=== PATIENT | female | born 1965 | race American Indian/Alaskan Native ===

== ENCOUNTER 2018-03-03 08:39 | Day surgery (SDC) | payer OTHER ==
[2018-02-01 10:22] VITALS: BMI 42.9
[2018-03-03 09:54] VITALS: O2SAT 100
[2018-03-03] MEDS ORDERED: Lidocaine Hydrochloride 5 ML INJ ONE (10:20)
[2018-03-03] MEDS ORDERED: Propofol 10 mg/ml Inj (20 ML) ONE (10:20)
[2018-03-03 10:56] VITALS: TEMP 98.5
--- NOTE | 2018-03-03 11:11 | CP.SDSHP ---
Same Day Surgery H & P - History Proposed Procedure: EGD/biopsy Pre-Op Diagnosis: abdominal pain - Previous Medical/Surgical History Cardiac: Hypertension Pulmonary: Asthma Previous Surgical History: hysterectomy - Allergies Allergies: Allergies No Known Allergies Allergy (Verified 05/08/17 13:10) - Current Medications Current Medications: reviewed, per reconciliation - Physical Exam General Appearance: wdwn nad Vital Signs: Vital Signs 03/03/18 03/03/18 09:42 10:17 Temperature 98.2 F 98.2 F Pulse Rate 70 70 Respiratory 20 20 Rate Blood Pressure 133/81 133/81 O2 Sat by Pulse 100 100 Oximetry Mental Status: Alert & Oriented x3 Heart: WNL Lungs: WNL GI: WNL - {Optional Preform as Required} Abdomen: WNL - Impression Impression: abdominal pain Pt. Evaluated Today:Candidate for Anesthesia & Procedure: Yes - Date & Time Date: 03/03/18 Time: 10:21 Short Stay Discharge - Short Stay Discharge Admitting Diagnosis/Reason for Visit: ABDOMINAL PAIN Disposition: HOME/ ROUTINE
[2018-03-03 11:23] VITALS: RESP 15
[2018-03-03 11:31] VITALS: BP 114/67; PULSE 61
== END 2018-03-03 11:29 | disposition home or self-care (01) ==
LOC: C.ENDO 08:39
PROVIDERS: ATTEND Internal Medicine Gastroenterology
DX: K25.9 Gastric ulcer, unspecified as acute or chronic, without hemorrhage or perforation (principal); R10.84 Generalized abdominal pain; I10 Essential (primary) hypertension; J45.909 Unspecified asthma, uncomplicated
CPT/HCPCS: 43239; 88305; 88342; J2704